=== PATIENT | female | born 1970 | race Hispanic/Latino ===

== ENCOUNTER 2019-05-01 22:04 | Emergency (ER) | payer OTHER ==
[2019-05-01] MEDS ORDERED: Cyclobenzaprine 10 MG TAB ONE (22:36)
[2019-05-01] MEDS ORDERED: Ketorolac Tromethamine 30 MG/ML VIAL ONE (22:36)
== END 2019-05-01 22:51 | disposition home or self-care (01) ==
LOC: ERS 22:04
DX: S16.1XXA Strain of muscle, fascia and tendon at neck level, initial encounter (principal); V89.2XXA Person injured in unspecified motor-vehicle accident, traffic, initial encounter
CPT/HCPCS: 96374; J1885